=== PATIENT | female | born 1995 | race Two or more races ===

== ENCOUNTER 2018-03-22 13:49 | Emergency (ER) | payer OTHER ==
[~2018-03-22] VITALS: Ht 172.7 cm; Wt 86.2 kg
== END 2018-03-22 19:41 | disposition home or self-care (01) ==
LOC: ER 13:49
DX: S93.491A Sprain of other ligament of right ankle, initial encounter (principal); S80.11XA Contusion of right lower leg, initial encounter; V19.9XXA Pedal cyclist (driver) (passenger) injured in unspecified traffic accident, initial encounter; Y93.89 Activity, other specified; Y92.488 Other paved roadways as the place of occurrence of the external cause; Y99.8 Other external cause status

== ENCOUNTER 2018-03-31 09:36 | Emergency (ER) | payer OTHER ==
[~2018-03-31] VITALS: Ht 172.7 cm; Wt 86.2 kg
== END 2018-03-31 14:13 | disposition home or self-care (01) ==
LOC: ER 09:36
DX: S80.811D Abrasion, right lower leg, subsequent encounter (principal); L08.9 Local infection of the skin and subcutaneous tissue, unspecified; V19.9XXD Pedal cyclist (driver) (passenger) injured in unspecified traffic accident, subsequent encounter

== ENCOUNTER 2018-04-04 12:51 | Emergency (ER) | payer OTHER ==
[~2018-04-04] VITALS: Ht 172.7 cm; Wt 86.2 kg
[2018-04-04] MEDS ORDERED: AMOX1TAB5 (13:29)
[2018-04-04] MEDS ORDERED: IBUPROFEN800 MG (13:30)
== END 2018-04-04 15:16 | disposition home or self-care (01) ==
LOC: ER 12:51
DX: Z48.02 Encounter for removal of sutures (principal)

== ENCOUNTER → 2022-02-03 | Emergency (ER) | payer OTHER ==
[~2022-02-03] MED LIST: AMOX1TAB5; IBUPROFEN800 MG
== END | disposition home or self-care (01) ==
LOC: ER 18:04
DX: Z48.02 Encounter for removal of sutures (principal)